=== PATIENT | male | born 1985 | race Caucasian/White ===

== ENCOUNTER 2022-12-25 22:07 | Emergency (ER) | payer OTHER ==
[~2022-12-25] VITALS: Ht 180.3 cm; Wt 131.5 kg
[2022-12-25 22:21] VITALS: BP_SYST 173
[2022-12-25] MEDS ORDERED: predniSONE 20 MG TABLET PO ONE (22:30)
[2022-12-25] MEDS ORDERED: ALBUTEROL SULFATE 0.083% 2.5 MG/3 ML VIAL.NEB INH ONE (22:30)
[2022-12-25] MEDS ORDERED: PRED20TA PO (23:30)
[2022-12-25] MEDS ORDERED: FLUT1DIS3 INH (23:30)
[2022-12-25] MEDS ORDERED: ALBMDI INH (23:30)
[2022-12-25 23:33] VITALS: BP_SYST 132
== END 2022-12-25 23:33 | disposition home or self-care (01) ==
LOC: SED 22:07
DX: J45.901 Unspecified asthma with (acute) exacerbation (principal); R06.02 Shortness of breath; R07.89 Other chest pain; Z88.1 Allergy status to other antibiotic agents; Z79.899 Other long term (current) drug therapy
CPT/HCPCS: 94640; 99283; J7512; J7613